=== PATIENT | female | born 1980 | race Caucasian/White ===

== ENCOUNTER 2020-01-09 09:38 | Outpatient (RCR) | payer OTHER, SELFPAY ==
[2020-01-09 11:18] LABS: Hematocrit 29.1 % (37.0-47.0); Hemoglobin 9.5 g/dL (12.0-15.0)
[2020-01-09 11:29] LABS: Glucose 1 Hour PP 50gm Dose 156 mg/dL
[2020-01-09 11:59] LABS: Vitamin D 25 Hydroxy 41.1 ng/mL
[2020-01-09 12:10] LABS: HIV 1/2 Ab P24 Ag Result Negative (Negative)
[2020-01-09] MEDS: RHO(D) IMMUNE GLOBULIN 300 MCG SYRINGE IM (14:18)
== END 2020-04-08 23:59 | disposition home or self-care (01) ==
LOC: ANHLAB 09:38
PROVIDERS: Visit Provider Obstetrics & Gynecology Gynecology
DX: Z29.13 Encounter for prophylactic Rho(D) immune globulin (principal); Z11.4 Encounter for screening for human immunodeficiency virus [HIV]; O36.0990 Maternal care for other rhesus isoimmunization, unspecified trimester, not applicable or unspecified; Z3A.00 Weeks of gestation of pregnancy not specified
CPT/HCPCS: 36415; 82306; 82947; 85014; 85018; 85461; 86703; 90384; 96372; G0432; J2790

== ENCOUNTER 2020-03-25 10:48 | Outpatient (CLI) | payer OTHER, SELFPAY ==
[2020-03-25 11:52] LABS: Basophils Percent Auto 0.2 % (0.2-1.2); Eosinophils Absolute Auto 0.1 K/mm3 (0-0.3); Eosinophils Percent Auto 0.9 % (0-4.4); Hematocrit 33.4 % (37.0-47.0); Immature Granulocyte Absolute 0.05 K/mm3 (0.00-0.031); Immature Granulocyte Percent A 0.6 % (0-0.5); Lymphocytes Absolute Auto 2.11 K/mm3 (0.9-3.2); Lymphocytes Percent Auto 23.9 % (18.3-44.2); Mean Corpuscular HGB Conc 32.9 g/dl (32-36); Mean Corpuscular Hemoglobin 27.9 pg (26-34); Mean Corpuscular Volume 84.8 fl (80-100); Monocytes Absolute Auto 0.4 K/mm3 (0.1-0.6); Monocytes Percent Auto 4.3 % (2.6-8.5); Neutrophils Absolute Auto 6.2 K/mm3 (1.3-6.7); Neutrophils Percent Auto 70.1 % (45.5-73.1); Platelet Count Result 131 k/mm3 (150-375); Red Blood Count 3.94 M/mm3 (4.2-5.4); Red Cell Distribution Width 15.7 % (11.5-14.5); White Blood Count 8.8 K/mm3 (4.5-10.0)
[2020-03-26 07:07] LABS: Rapid Plasma Reagin Non-Reactive (NonReactive)
== END 2020-03-25 10:49 | disposition home or self-care (01) ==
LOC: ANHOBOP 10:56
PROVIDERS: Visit Provider Obstetrics & Gynecology
DX: Z34.93 Encounter for supervision of normal pregnancy, unspecified, third trimester (principal); Z3A.00 Weeks of gestation of pregnancy not specified
CPT/HCPCS: 36415; 85025; 86592; 86850; 86880; 86900; 86901; 86902

== ENCOUNTER 2020-03-26 10:08 | Inpatient (IN) | payer OTHER, SELFPAY ==
[2020-03-26] VITALS (69 sets, daily range): BP systolic 91–130; BP diastolic 62–92; PULSE 46–111; RESP 13–16; TEMP 36.1–36.8; O2SAT 95–100; BMI 29.4
--- NOTE | 2020-03-26 08:20 | PM.IMHP ---
H&P: HPI History of Present Illness Chief complaint: hx previous csection, desires sterilization Narrative: Genna Bravo is a 40 year old female @ 39 weeks by lmp 06/24/19 admitted for csection presented for scheduled repeat csection. prior csection x3 desires permanent sterilizaition. complicated by anxiety, Marijuana use, anxiety, AMA and A2GDM PMFSH Past Medical History Medical History (Updated 03/26/20 @ 08:24 by Jose G Calvo MD) Sterilization Surgical History Surgical History (Updated 03/26/20 @ 08:24 by Jose G Calvo MD) H/O: Family History Family History (Updated 12/03/16 @ 08:42 by DOCTOR UNKNOWN) Mother Family history of thyroid disease Depression Father Family history of alcoholism Family history of cardiovascular disease Acute myocardial infarction Family history of chronic obstructive pulmonary disease Family history of lung cancer Social History Social History Smoking status: Never smoker Alcohol intake: current Meds Home Medications and Allergies Allergies Allergy/AdvReac Type Severity Reaction Status Date / Time No Known Allergies Allergy Unverified 01/14/14 09:36 Exam Resp: Auscultation: clear to auscultation bilaterally Cardio: Rate: regular rate Rhythm: regular rhythm GI: GI Palp: Yes Soft to palpation (GRavid) Assessment and Plan Assessment and plan (1) H/O: : Code(s): Z98.891 - History of uterine scar from previous surgery Status: Acute Assessment and Plan: Scheduled for a repeat csection with bilateral tubal ligation. (2) Sterilization: Code(s): Z30.2 - Encounter for sterilization Status: Acute
--- NOTE | 2020-03-26 11:15 | LDADM ---
This patient, Genna Dempsey, was admitted to Labor/Delivery/Recovery 119 on 03/26/20 at 10:08. Plans for labor, pain management and were discussed with patient. Patient/family oriented to hospital policies and general routines including ID bracelet, bed and alarms, visiting hours, pain management, procedures, bathroom and other care routines, personal items, smoking policy, room service/diet and guest tray routines, security routines, and visiting hours. Patient/Family are encouraged to report perceived risks to care and to ask questions if they do not understand what they are told or what they should do. See OBIX for further documentation.
[2020-03-26] MEDS: LACTATED RINGERS 1,000 ML 125 ML IV CONT ×2 (11:28→11:55)
--- NOTE | 2020-03-26 11:57 | P.PNAN_ITS ---
Anes - Initial Pre Proc Eval Procedure: Operation Date: 03/26/20 12:00 Proposed Procedures p Repeat Section with Bilateral Tubal Ligation With Fallopian Rings - Jose G Calvo MD Date/Time: 03/26/20 11:57 Surgeon: Jose G Calvo MD Pre Op Diagnosis: c/s Patient Data Age: 40 Gender: F Height: 5 ft 2 in Weight: 73 kg Last Vital Signs Pulse 63 03/26/20 10:46 BP 114/74 03/26/20 10:46 Allergies Allergy/AdvReac Type Severity Reaction Status Date / Time No Known Allergies Allergy Unverified 01/14/14 09:36 Home Medications Medication Instructions Recorded Confirmed Type insulin aspart U-100 [Novolog 14 unit SUBCUT HS 03/26/20 03/26/20 History U-100 Insulin aspart] sertraline [Zoloft] 50 mg PO DAILY 03/26/20 03/26/20 History Patient hx anesthesia problems: post op nausea/vomiting Family hx anesthesia problems: none PMFSH Past Medical History Medical History Depression Diabetes Sterilization Surgical History Surgical History H/O: Family History Family History Mother Family history of thyroid disease Depression Father Family history of alcoholism Family history of cardiovascular disease Acute myocardial infarction Family history of chronic obstructive pulmonary disease Family history of lung cancer Social History Social History Smoking status: Never smoker Alcohol intake: current Substance use: never Gender identity (if verbalized by the patient): Female Sexual Orientation (if Verbalized by the Patient): Straight or Heterosexual Spiritual care concerns: No Anes - Eval Final PreProcedure Day of Procedure 03/26/20 11:57 Patient weight: overweight Heart: regular rate and rhythm Lungs: clear to auscultation Airway: Mallampati scale class II Neurological: alert and oriented Last oral intake: >/= 8 hours ASA classification: III Emergent: no Anesthetic plan: proceed Anesthesia type and monitoring: regional spinal and standard monitoring Informed Consent: The patient's anesthetic plan and its attendant risks and benefits were discussed with the patient/family/POA. Questions were solicited a nd answers provided to the satisfaction of the patient/family/POA.
[2020-03-26 12:01] LABS: Glucose Point of Care 72 (65-105)
[2020-03-26] MEDS: ceFAZolin 2 GM/D5W 50 ML 2 GM/50 ML BAG IVPB (12:08)
--- NOTE | 2020-03-26 13:01 | PM.OBPRVD ---
OB - Delivery Note Procedure Delivery date: 03/26/20 Procedure: Procedures Operation Date: 03/26/20 12:00 <No data on this case meets the specified criteria> events: Previous and Gestational Diabetes Route of delivery: (bilateral salpingectomy) Anesthesia type: Spinal Disposition: observation Baby Date of : 03/26/20 Time of : 12:29 Weeks of gestation at delivery: 39 gender: Male Weight (pounds): 7 Weight (ounces): 6 presentation: vertex position: Right Occiput Anterior Placenta delivery description: Spontaneous cord vessel description: 3 Vessels and Nuchal Cord score one minute: 9 score five minutes: 9
[2020-03-26] MEDS: OXYTOCIN 30 UNITS/NS 500 ML 30 UNITS/500 ML BAG 125 UNITS IV CONT (13:43)
[2020-03-26] MEDS: KETOROLAC 30 MG/ML VIAL (*BKC) IV PUSH ×2 (15:03→21:10)
[2020-03-26 15:41] LABS: Amphetamine Screen Urine Negative (Negative); Barbiturate Screen Urine Negative (Negative); Benzodiazepines Screen Urine Negative (Negative); Cannabinoid Screen Urine Positive (Negative); Cocaine Screen Urine Negative (Negative); Methadone Screen Urine Negative (Negative); Opiate Screen Urine Negative (Negative); Phencyclidine Screen Urine Negative (Negative)
--- NOTE | 2020-03-26 16:00 | PC.NURSE ---
Patient transferred to post room #291 per stretcher from labor and delivery. Support person present. Oriented to unit, room, information board, rooming in, admission packet and security measures. Patient verbalizes understanding.
[2020-03-26] MEDS: DEXTROSE 5%/0.45% SOD CHL 1,000 ML 125 ML IV CONT (20:19)
--- NOTE | 2020-03-26 21:53 | OP_ITS ---
DATE OF PROCEDURE: 03/26/2020 PREOPERATIVE DIAGNOSES: Repeat section and desires permanent sterilization. POSTOPERATIVE DIAGNOSES: Repeat section and desires permanent sterilization. PROCEDURE PERFORMED: Repeat low-transverse section with bilateral salpingectomy. ANESTHESIA: Spinal. COMPLICATIONS: None. ESTIMATED BLOOD LOSS: 410 cc. FINDINGS: Male in OP position. Apgars 9 and 9. DESCRIPTION OF PROCEDURE: The patient was taken to the operating room with IV running. She was prepped and draped in normal sterile fashion, placed in the supine position with a leftward tilt. A Pfannenstiel skin incision was made with a scalpel, carried down to the underlying layer of fascia. The fascial incision was then extended bilaterally with Rendon scissors. Superior aspect of the incision was grasped with Marcie clamps, elevated, dissected off the rectus muscles. The upper muscles were in the midline. The peritoneum was entered bluntly. Bladder blade was inserted and the vesicouterine peritoneum was grasped with pickups and entered sharply. Bladder flap was created digitally. The lower uterine segment was incised in a transverse fashion with the scalpel and extended bluntly. The head was delivered atraumatically. Cord was clamped and cut. Fetus was handed off to the waiting nurse. Cord gases were obtained. Cord blood was obtained. Placenta delivered spontaneously. The uterus exteriorized, cleared of all clots and debris. Uterine incision was then closed with 0 Monocryl in a running locked fashion. Hemostasis assured. The tubes were then examined and grasped with [place]'s and transected and suture ligated bilaterally sending both tubes to pathology. Incision reexamined noted to be hemostatic. The uterus was returned to the abdomen. The gutters were cleared of all clots and debris and irrigated copiously. Uterine incision was closed with Interceed. The muscles were examined for hemostasis. Fascia was closed with 0 Vicryl in a running fashion. Subcutaneous tissue was irrigated, closed with 3-0 plain gut, and the skin was closed with 4-0 Vicryl on a Anthony needle and covered with Dermabond. Sponge, lap, and needle counts were correct x2. The patient tolerated the procedure well. D I MT: Tracey
[2020-03-27 00:05] VITALS: BP 103/63; PULSE 63; RESP 14; TEMP 36.8; O2SAT 96
[2020-03-27 05:10] VITALS: BP 101/65; PULSE 72; RESP 13; TEMP 36.7; O2SAT 97
[2020-03-27] MEDS: KETOROLAC 30 MG/ML VIAL (*BKC) IV PUSH (05:10)
[2020-03-27 05:36] LABS: Basophils Percent Auto 0.2 % (0.2-1.2); Eosinophils Percent Auto 0.5 % (0-4.4); Hematocrit 27.5 % (37.0-47.0); Immature Granulocyte Absolute 0.03 K/mm3 (0.00-0.031); Immature Granulocyte Percent A 0.4 % (0-0.5); Immature Platelet Fraction Pct 8.5 % (0.9-11.2); Lymphocytes Absolute Auto 1.36 K/mm3 (0.9-3.2); Lymphocytes Percent Auto 16.8 % (18.3-44.2); Mean Corpuscular HGB Conc 32.7 g/dl (32-36); Mean Corpuscular Hemoglobin 27.6 pg (26-34); Mean Corpuscular Volume 84.4 fl (80-100); Monocytes Absolute Auto 0.3 K/mm3 (0.1-0.6); Monocytes Percent Auto 4.1 % (2.6-8.5); Neutrophils Absolute Auto 6.3 K/mm3 (1.3-6.7); Platelet Count Result 115 k/mm3 (150-375); Red Blood Count 3.26 M/mm3 (4.2-5.4); Red Cell Distribution Width 15.7 % (11.5-14.5); White Blood Count 8.1 K/mm3 (4.5-10.0)
--- NOTE | 2020-03-27 07:08 | WPDANLDPN2 ---
Anes-Prog Note L&D Date/Time: 03/27/20 07:08 Comfortable throughout: section Neuraxial method: spinal Epidural/Spinal procedure site: clean & non-tender Neuro status: Neuro function grossly intact. Cardiovascular status: normal Respiratory status: normal Airway patency: baseline Mental status: baseline Post-Op hydration status: normal Vital Signs: Last Vital Signs Temp 36.8 C 03/26/20 19:00 Pulse 59 L 03/26/20 19:00 Resp 13 03/26/20 19:00 BP 107/69 03/26/20 19:00 Pulse Ox 96 03/26/20 19:00 I/O: Intake & Output 03/26/20 03/26/20 03/27/20 15:59 23:59 07:59 Intake Total 2150 120 Output Total 400 775 Balance 1750 -655 Post-procedural complaints: none Patient feedback: Patient satisfied with anesthetic care.
--- NOTE | 2020-03-27 07:08 | WPDANLDNPN2 ---
Anes-Prog Note L&D-Neuraxial Date/Time: 03/27/20 07:08 Neuraxial medications: intrathecal PF morphine Opiod-related complaints: none Patient feedback: Patient satisfied with post-operative pain management.
[2020-03-27] MEDS: SIMETHICONE 80 MG TAB.CHEW PO ×2 (07:56→17:19)
[2020-03-27] MEDS: DOCUSATE SODIUM 100 MG CAPSULE PO ×2 (07:56→17:19)
[2020-03-27] MEDS: MULTIVIT/MIN/PREN/FOL AC/IRON TABLET 1 TAB PO (07:56)
[2020-03-27] MEDS: SERTRALINE HCL 50 MG TABLET PO (07:56)
[2020-03-27] MEDS: LANOLIN (LANSINOH) 7.5 GM CREAM 1 APPLIC TOPICAL (07:57)
[2020-03-27 08:20] VITALS: BP 94/62; PULSE 71; RESP 18; TEMP 36.6
--- NOTE | 2020-03-27 09:35 | PC.NURSE ---
Consulted with patient, mother reports she has breastfed other children. Small scabbing noted to both nipples, from possible shallow latch. Reviewed infant feeding cues, frequencies, duration of feedings, feeding elimination flow sheet, and signs of adequate intake. Demonstrated stimulation techniques to wake for feeding. Assisted with to breast. Reviewed positioning/alignment in cross cradle, holding breast in U hold and guided asymmetrical latch on. Discussed rational for each. Infant was able to latch correctly. nursed eagerly, with steady draws and frequent swallowing noted. Reviewed signs of a correct latch, effective nursing and suck swallow ratio. was able to maintain latch without discomfort to mother. Nipple care reviewed. Advised to hold breast during entire feeding to assist with maintaining deep latch. Suggested to stimulate during feeding to keep infant awake and nursing effectively for increased intake. Instructed mother to call out for RN assistance if she is unable to latch infant for feeding or she has discomfort with nursing. Instructed feeding should be initiated three hours from start of last feeding or if feeding cues are noted before. Mother voiced understanding of information shared.
[2020-03-27] MEDS: RHO(D) IMMUNE GLOBULIN 300 MCG SYRINGE IM (11:33)
[2020-03-27] MEDS: IBUPROFEN 600 MG TABLET PO ×2 (11:35→17:18)
[2020-03-27 12:00] VITALS: BP 100/59; PULSE 63; RESP 16; TEMP 37; O2SAT 97
[2020-03-27] MEDS: POLYSACCHARIDE IRON COMPLEX 150 MG CAPSULE PO (17:18)
[2020-03-27 22:00] VITALS: BP 106/69; PULSE 79; RESP 13; TEMP 36.7; O2SAT 97
[2020-03-28] MEDS: IBUPROFEN 600 MG TABLET PO ×3 (00:06→15:19)
[2020-03-28 08:00] VITALS: BP 108/77; PULSE 67; RESP 18; TEMP 36.8
[2020-03-28] MEDS: MULTIVIT/MIN/PREN/FOL AC/IRON TABLET 1 TAB PO (08:23)
[2020-03-28] MEDS: DOCUSATE SODIUM 100 MG CAPSULE PO ×2 (08:23→15:19)
[2020-03-28] MEDS: SIMETHICONE 80 MG TAB.CHEW PO ×2 (08:23→15:19)
[2020-03-28] MEDS: SERTRALINE HCL 50 MG TABLET PO (08:24)
[2020-03-28] MEDS: POLYSACCHARIDE IRON COMPLEX 150 MG CAPSULE PO ×2 (08:24→15:19)
--- NOTE | 2020-03-28 11:00 | PC.NURSE ---
Patient viewed the discharge video Mother & Baby Care, The First Two Weeks . Patient was given the opportunity and encouraged to ask questions. Patient verbalized understanding of information shared and has been given the mother/baby guide for home reference.
--- NOTE | 2020-03-28 12:07 | P.PNOB_ITS ---
OB - PN: Subj Subjective Date/time seen: 03/28/20 12:07 Patient comments: no complaints, pain well controlled and tolerating diet [place] baby status: doing well Narrative: desires home today OB - PN: Obj Data Labs CBC & Chem 7: 03/27/20 05:22 Labs: Laboratory Results - last 24 hr 03/27/20 05:22 Blood Type A Negative Antibody Screen TNP Screen Negative Baby's Blood Type A pos Baby's VEGA Positive Doses of RhIg Required 1 OB - PN A/P Assessment and Plan (1) Sterilization: Code(s): Z30.2 - Encounter for sterilization Status: Acute (2) H/O: : Code(s): Z98.891 - History of uterine scar from previous surgery Status: Acute Assessment and Plan: discharge home follow up in 1 week for pp care. Time Spent With Patient Time: Total time spent is greater than 50% in coordination of care (as documented) at patient's floor/unit and/or counseling patient: Exam GI: Other: kincision clean dry and intact uterus at umbilicus
[2020-03-29 08:26] VITALS: BP 111/72; PULSE 69; RESP 20; TEMP 36.8; O2SAT 100
--- NOTE | 2020-04-18 13:04 | PM.OBDSVD ---
DS: Admitting Diagnosis Admitting Diagnosis Admitting Diagnosis: Encounter for supervision of normal , unspecified, third trimester OB - DS: Summary OB Procedures : Ultrasound OB Procedures Intrapartum: and Tubal ligation OB Procedures: : None Peripartum Data Procedures: Procedures Operation Date: 03/26/20 12:00 Actual Procedures Side Surgeon p Repeat Section with Bilateral Tubal Ligation With Fallopian Rings Jose G Calvo MD Time Spent with Patient Time attestation: Total time spent providing and/or coordinating discharge services: DS: Data Data Completed and Pending Completed studies during hospitalization: Pending at discharge 03/26/20 13:39 Surgical [PTH] Routine Discharge Plan Discharge Attending physician on discharge: Jose G Calvo Consulting providers: ; Korey Bella Discharging Clinician: Jose G Calvo Patient Disposition: Home, Self-Care Activity: may shower and pelvic rest Diet: regular Wound Care Instructions: incision open to air Discharge Instructions: Education: Mom and Baby Guide Given to: Mother Follow-Up: Call your delivering provider's office for an appointment to be seen in: 1 Week Mom and baby should come to the [facility] for the follow-up appointment. Appointment Date/Time: March 29, 2020 at 8:00 am What to expect at your follow-up visit: Blood Pressure Check Physical Assessment Call [phone] if you are unable to keep your appointment time. BREAST CARE: 1. Wear a snug supportive bra. 2. For engorgement discomfort: Breast Feeding: A. Apply warm moist washcloths B. Express milk as needed to relieve engorgement C. Wear loose clothing 3. For sore nipples: A. Identify correct latch-on B. Apply warm moist washcloths before and after nursing C. Air dry nipples after nursing D. May apply Lansinoh cream to nipples ABDOMINAL INCISION: (if applicable) 1. Allow incision to air dry 2. Do NOT use lotions for powders on your incision 3. When showering, allow soap and water to run over the incision, but do not wash incision EPISIOTOMY/PERINEAL CARE: 1. Until bleeding stops, use your coco bottle after urinating 2. Change your pad frequently throughout the day 3. You may take sitz baths several times a day (fill your bathtub with warm water and soak for 20 minutes.) Do NOT bathe in the water 4. No tub baths until seen by your physician - You may shower ACTIVITY: 1. Rest as much as possible. 2. Do not exercise or lift anything heavier than your baby (such as laundry or other children.) 3. Avoid stairs or driving as much as possible. 4. Do not put anything into the vagina. No douching, tampons, or sexual activity until seen by physician. NOTIFY PHYSICIAN IF YOU HAVE ANY QUESTIONS OR IF ANY OF THE FOLLOWING SYMPTOMS OCCUR: 1. If your incision becomes red, swollen, or more painful than what you have experienced in the hospital. 2. If your vaginal bleeding becomes foul smelling. 3. If your vaginal bleeding becomes more heavy than a period or if your bleeding changes from pink to bright red. However, you may pass an occasional walnut-sized clot once or twice for the first week . 4. If you experience a sharp, shooting pain in you calves. 5. If you discover a hard, reddened area on your breast or if you experience flu-like symptoms. DIET: 1. Eat regular, well-balanced meals. 2. Drink plenty of fluids daily. If , drink to thirst. Patient Instructions: Antibiotic Form Stand Alone Forms: General Discharge Information Follow-up/Referrals: Jose G Calvo MD [Family Provider] - Discharge Medications: New hydrocodone-acetaminophen 5-325 mg Tablet 1 tab PO Q3H PRN (Reason: Moderate Pain (4-6)) Qty: 30 RF: 0 ibuprofen 600 mg Tablet 600 mg PO Q6H PRN (Re
== END 2020-03-28 16:00 | disposition home or self-care (01) | DRG 787 ==
LOC: ANHLDR 10:15 → ANHOB2 16:05
PROVIDERS: Admitting Provider Obstetrics & Gynecology; Family Provider Obstetrics & Gynecology; Visit Provider Obstetrics & Gynecology
PROC: 10D00Z1 Extraction of Products of Conception, Low, Open Approach (ICD-10-PCS; CPT 59514; principal; 2020-03-26 12:00)
DX: O34.211 Maternal care for low transverse scar from previous cesarean delivery (principal); O99.324 Drug use complicating childbirth; Z37.0 Single live birth; Z3A.39 39 weeks gestation of pregnancy; F12.90 Cannabis use, unspecified, uncomplicated; O24.429 Gestational diabetes mellitus in childbirth, unspecified control; O99.344 Other mental disorders complicating childbirth; F41.9 Anxiety disorder, unspecified; O69.81X0 Labor and delivery complicated by cord around neck, without compression, not applicable or unspecified; Z30.2 Encounter for sterilization
CPT/HCPCS: 36415; 80307; 85025; 85055; 85461; 88302; 88307; 90384; A9270; J0131; J0690; J1885; J2274; J2370; J2405; J2590; J2790; J7120